=== PATIENT | female | born 1950 | race Caucasian/White ===

== ENCOUNTER 2024-11-08 15:50 | Outpatient (CLI) | payer MEDICARE, BC, SELFPAY | END 2024-11-08 15:51 | disposition home or self-care (01) | PROVIDERS: Visit Provider Family Medicine | DX: E11.9 Type 2 diabetes mellitus without complications (principal); I10 Essential (primary) hypertension; Z79.85 Long-term (current) use of injectable non-insulin antidiabetic drugs | CPT/HCPCS: 80048 ==

== ENCOUNTER 2025-02-01 07:47 | Outpatient (CLI) | payer MEDICARE, BC, SELFPAY | END 2025-02-01 07:48 | disposition home or self-care (01) | LOC: NFLDREF 02-05 04:32 | PROVIDERS: PCP Family Medicine; Referring Provider Family Medicine; Visit Provider Family Medicine | DX: N30.00 Acute cystitis without hematuria (principal) | CPT/HCPCS: 87086 ==

== ENCOUNTER 2025-02-14 15:30 | Outpatient (CLI) | payer MEDICARE, BC, SELFPAY | END 2025-02-14 15:31 | disposition home or self-care (01) | LOC: LKVREF 15:32 | PROVIDERS: PCP Family Medicine; Visit Provider Family Medicine | DX: E11.22 Type 2 diabetes mellitus with diabetic chronic kidney disease (principal); I12.9 Hypertensive chronic kidney disease with stage 1 through stage 4 chronic kidney disease, or unspecified chronic kidney disease; N18.2 Chronic kidney disease, stage 2 (mild); E78.00 Pure hypercholesterolemia, unspecified; R80.9 Proteinuria, unspecified | CPT/HCPCS: 80053; 80061; 87086 ==

== ENCOUNTER 2025-02-25 10:46 | Outpatient (CLI) | payer MEDICARE, BC, SELFPAY | END 2025-02-25 10:47 | disposition home or self-care (01) | LOC: NFLDREF 02-28 18:55 | PROVIDERS: PCP Family Medicine; Referring Provider Family Medicine; Visit Provider Family Medicine | DX: N30.00 Acute cystitis without hematuria (principal) | CPT/HCPCS: 87086 ==

== ENCOUNTER 2025-03-11 13:00 | Outpatient (CLI) | payer MEDICARE, BC, SELFPAY | END 2025-03-11 13:01 | disposition home or self-care (01) | LOC: NFLDREF 03-16 18:51 | PROVIDERS: PCP Family Medicine; Referring Provider Family Medicine; Visit Provider Family Medicine | DX: N30.00 Acute cystitis without hematuria (principal); B96.5 Pseudomonas (aeruginosa) (mallei) (pseudomallei) as the cause of diseases classified elsewhere | CPT/HCPCS: 87086 ==

== ENCOUNTER 2025-03-25 09:59 | Outpatient (CLI) | payer MEDICARE, BC, SELFPAY | END 2025-03-25 10:00 | disposition home or self-care (01) | LOC: NFLDREF 03-31 01:32 | PROVIDERS: PCP Family Medicine; Referring Provider Family Medicine; Visit Provider Family Medicine | DX: N39.0 Urinary tract infection, site not specified (principal) | CPT/HCPCS: 87086 ==

== ENCOUNTER 2025-04-08 15:05 | Outpatient (CLI) | payer MEDICARE, BC, SELFPAY | END 2025-04-08 15:06 | disposition home or self-care (01) | LOC: NFLDREF 15:06 | PROVIDERS: PCP Family Medicine; Visit Provider Family Medicine | DX: N30.00 Acute cystitis without hematuria (principal) | CPT/HCPCS: 87086 ==